=== PATIENT | female | born 1980 | race Caucasian/White ===

== ENCOUNTER 2017-04-09 08:36 | Emergency (ER) | payer SELFPAY ==
[~2017-04-09] VITALS: Ht 154.9 cm; Wt 57.0 kg
[~2017-04-09 08:36] MED LIST: BEN25 PO; CEPH-443 PO; CIPR500T4 PO; FERR325C PO; NAPR-260 PO
[2017-04-09 08:39] VITALS: Ht 154.9 cm; Wt 57.0 kg
[2017-04-09] MEDS ORDERED: LORAZEPAM 2 MG INJ IM STA (09:18)
[2017-04-09] MEDS ORDERED: SOD CHLORIDE 0.9% 1,000 ML IV STA (09:18)
[2017-04-09 09:41] LABS: ADD SCAN DIFF NO
[2017-04-09 09:43] LABS: ABNORMAL IP MESSAGE 1; BASOPHIL # 0.1 10^3/ul (0.0-0.1); BASOPHILS % 0.6 % (0.0-2.0); EOSINOPHILS % 0.1 % (0.0-7.0); HEMATOCRIT 36.5 % (37.0-47.0); HEMOGLOBIN 12.9 g/dl (12.0-16.0); LYMPHOCYTES # 3.4 10^3/ul (0.8-2.9); LYMPHOCYTES % 22.1 % (15.0-51.0); MEAN CORPUSCULAR HEMOGLOBIN 31.1 pg (29.0-33.0); MEAN CORPUSCULAR HGB CONC 35.3 g/dl (32.0-37.0); MEAN PLATELET VOLUME 10.3 fl (7.4-10.4); MONOCYTE # 2.1 10^3/ul (0.3-0.9); MONOCYTES % 13.5 % (0.0-11.0); NEUTROPHIL # 9.8 10^3/ul (1.6-7.5); NEUTROPHILS % 63.4 % (39.0-77.0); PLATELET COUNT 212 10^3/UL (140-415); RED BLOOD COUNT 4.15 10^6/ul (4.20-5.40); RED CELL DISTRIBUTION WIDTH 12.7 % (11.5-14.5); WHITE BLOOD COUNT 15.4 10^3/ul (4.8-10.8)
[2017-04-09 10:04] LABS: INR 1.08; PT RATIO 1.1
[2017-04-09 10:21] LABS: ALANINE AMINOTRANSFERASE 79 IU/L (13-69); ALBUMIN 4.4 g/dl (3.3-4.9); ALBUMIN/GLOBULIN RATIO 1.62; ALKALINE PHOSPHATASE 42 IU/L (42-121); ANION GAP 13 (8-16); ASPARTATE AMINO TRANSFERASE 117 IU/L (15-46); BILIRUBIN,INDIRECT 0.4 mg/dl (0-1.1); BILIRUBIN,TOTAL 0.4 mg/dl (0.2-1.3); BLOOD UREA NITROGEN 25 mg/dl (7-20); CALCIUM 10.1 mg/dl (8.4-10.2); CARBON DIOXIDE 26 mmol/L (21-31); CHLORIDE 97 mmol/L (97-110); GLUCOSE 105 mg/dl (70-220); POTASSIUM 3.3 mmol/L (3.5-5.1); SODIUM 133 mmol/L (135-144); TOTAL PROTEIN 7.1 g/dl (6.1-8.1)
[2017-04-09 10:24] LABS: ACETAMINOPHEN < 10.0 ug/ml (10.0-30.0); ETHANOL < 10.0 mg/dl; SALICYLATE < 1.0 mg/dl (5.0-30.0)
[2017-04-09] MEDS ORDERED: SOD CHLORIDE 0.9% 1,000 ML IV ONE (12:00)
[2017-04-09 12:47] LABS: ADD UMIC NO; UR ASCORBIC ACID NEGATIVE (NEGATIVE); UR BILIRUBIN (Dip) NEGATIVE (NEGATIVE); UR BLOOD (Dip) NEGATIVE (NEGATIVE); UR CLARITY CLEAR (CLEAR); UR COLOR YELLOW (YELLOW); UR GLUCOSE (Dip) NEGATIVE (NEGATIVE); UR KETONES (Dip) TRACE mg/dL (NEGATIVE); UR LEUKOCYTE ESTERASE (Dip) NEGATIVE Leu/ul (NEGATIVE); UR NITRITE (Dip) NEGATIVE (NEGATIVE); UR SPECIFIC GRAVITY (Dip) 1.009 (1.003-1.030); UR TOTAL PROTEIN (Dip) NEGATIVE (NEGATIVE); UR UROBILINOGEN (Dip) 1+ mg/dL (NEGATIVE)
--- NOTE | 2017-04-09 12:54 | ERA ---
ER Documentation Chief Complaint Date/Time DATE: 04/09/17 TIME: 12:52 Chief Complaint foot pain, bizarre behavior HPI Patient is a 37-year-old female who comes to the ER complaining of bilateral foot pain. Further history could not be obtained due to the patient's mental status and behavior. ROS All systems reviewed and are negative except as per history of present illness. Medications Home Meds Discontinued Scripts Cephalexin* (Keflex*) 500 Mg Capsule, 500 MG PO QID for 10 Days, CAP Prov:PEARL GOINS NP 04/28/16 Diphenhydramine Hcl* (Benadryl*) 25 Mg Cap, 25 MG PO Q6 Y for ITCHING/RASH, #30 TAB Prov:PEARL GOINS NP 04/28/16 Ciprofloxacin Hcl* (Ciprofloxacin Hcl*) 500 Mg Tablet, 500 MG PO BID for 7 Days , TAB Prov:SÁNCHEZ RUSH PA-C 04/23/16 Naproxen* (Naprosyn*) 500 Mg Tablet, 500 MG PO BID Y for PAIN AND/OR INFLAMMATION, #30 TAB Prov:SÁNCHEZ RUSH PA-C 04/23/16 Ferrous Sulfate (Iron) 325 Mg Capsr, 325 MG PO TID for 15 Days Prov:YEYO MARRERO NP 12/02/15 Allergies Allergies: Coded Allergies: ciprofloxacin (Verified Allergy, Unknown, rash, 04/09/17) PMhx/Soc Past medical history: Unobtainable Past surgical history: Unobtainable Social history: Patient denies drug or alcohol abuse. Prior notes show history of methamphetamine abuse History of Surgery: Yes (cholecystectomy) Anesthesia Reaction: No Hx Neurological Disorder: Yes (degenerative joint disease) Hx Respiratory Disorders: No Hx Cardiac Disorders: No Hx Psychiatric Problems: Yes (anxiety, depression, mood disorder) Hx Miscellaneous Medical Probl: No Hx Alcohol Use: No (unable to assess) Hx Substance Use: No (unable to assess) Hx Tobacco Use: Yes Smoking Status: Current every day smoker FmHx Unable to obtain Physical Exam Vitals Vital Signs Date Time Temp Pulse Resp B/P Pulse Ox O2 Delivery O2 Flow Rate FiO2 04/09/17 12:00 105 18 114/78 100 Room Air 04/09/17 08:39 97.8 96 18 136/90 99 Physical Exam Const: Alert, severely agitated, pressured speech and screaming Head: Atraumatic Eyes: Normal Conjunctiva, no pallor, no icterus. Pupils equal round reactive , mydriasis ENT: Normal External Ears, Nose and Mouth. Moist mucous membranes Neck: Full range of motion..~ No meningismus. Resp: Clear to auscultation bilaterally, no wheezes, no rales Cardio: Mild tachycardia, regular rhythm, no murmurs Abd: Soft, non tender, non distended. Skin: No petechiae or rashes Back: No midline or flank tenderness Ext: No cyanosis, or edema Neur: Awake and alert, moving 4 extremities Psych: Rapid pressured speech, tangential thought pattern, agitated, uncooperative, responding to internal stimuli Result Diagram: 04/09/1737 04/09/17 0937 Results 24 hrs Laboratory Tests Test 04/09/17 09:37 04/09/17 12:00 White Blood Count 15.410^3/ul Red Blood Count 4.1510^6/ul Hemoglobin 12.9g/dl Hematocrit 36.5% Mean Corpuscular Volume 88.0fl Mean Corpuscular Hemoglobin 31.1pg Mean Corpuscular Hemoglobin Concent 35.3g/dl Red Cell Distribution Width 12.7% Platelet Count 61066^3/UL Mean Platelet Volume 10.3fl Neutrophils % 63.4% Lymphocytes % 22.1% Monocytes % 13.5% Eosinophils % 0.1% Basophils % 0.6% Nucleated Red Blood Cells % 0.0/100WBC Neutrophils # 9.810^3/ul Lymphocytes # 3.410^3/ul Monocytes # 2.110^3/ul Eosinophils # 0.010^3/ul Basophils # 0.110^3/ul Nucleated Red Blood Cells # 0.010^3/ul Prothrombin Time 14.0Sec Prothrombin Time Ratio 1.1 INR International Normalized Ratio 1.08 Sodium Level 133mmol/L Potassium Level 3.3mmol/L Chloride Level 97mmol/L Carbon Dioxide Level 26mmol/L Anion Gap 13 Blood Urea Nitrogen 25mg/dl Creatinine 1.00mg/dl Glucose Level 105mg/dl Calcium Level 10.1mg/dl Total Bilirubin 0.4mg/dl Direct Bilirubin 0.00mg/dl Indirect Bilirubin 0.4mg/dl Aspartate Amino Transf (AST/SGOT) 117IU/L Alanine Aminotransferase (ALT/SGPT) 79IU/L Alkaline Phosphatase 42IU/L Creatine Kinase 1259IU/L Total Protein 7.1g/dl Albumin 4.4g/dl Globulin 2.70g/dl Albumin/Globulin Ratio 1.62 Salicylates Level < 1.0mg/dl Acetaminophen Level < 10.0ug/ml Ethyl Alcohol Level < 10.0mg/dl Urine Color YELLOW Urine Clarity CLEAR Urine pH 6.0 Urine Specific [place] 1.009 Urine Ketones TRACEmg/dL Urine Nitrite NEGATIVEmg/dL Urine Bilirubin NEGATIVEmg/dL Urine Urobilinogen 1+mg/dL Urine Leukocyte Esterase NEGATIVELeu/ul Urine Hemoglobin NEGATIVEmg/dL Urine Glucose NEGATIVEmg/dL Urine Total Protein NEGATIVEmg/dl Urine Opiates Screen Negative Urine Barbiturates Negative Urine Amphetamines Screen Positive Urine Benzodiazepines Screen Negative Urine Cocaine Screen Negative Urine Cannabinoids Negative Current Medications Medications (Trade) Dose Ordered Sig/Ambar Route PRN Reason Start Time Stop Time Status Last Admin Dose Admin Sodium Chloride (NS) 1,000 ml @ 1,000 mls/hr Q1H STAT IV 04/09/17 09:18 04/09/17 10:17 DC 04/09/17 10:06 Lorazepam 4 mg 4 mg ONCE STAT IM 04/09/17 09:18 04/09/17 09:21 DC 04/09/17 09:34 Sodium Chloride (NS) 1,000 ml @ 1,000 mls/hr Q1H ONCE IV 04/09/17 12:00 04/09/17 12:59 DC 04/09/17 11:49 Potassium Chloride (Klor-Con 20) 20 meq ONCE STAT PO 04/09/17 13:40 04/09/17 13:43 DC 04/09/17 14:48 Procedures/MDM MDM: Patient is a 37-year-old female who presents to the ER with signs of psychosis. She has had prior ER presentations with similar symptoms in the setting of methamphetamine abuse. Her tox screen is positive for amphetamines. She has a CK of 1250. IV fluids and Ativan were given. Patient has mild hypokalemia. Tele-psychiatry was consulted, and recommends placing the patient on a 5150 hold. PET team is been called to place hold. A repeat CK was ordered and will be reviewed by Dr. Yost prior to medical clearance. I have ordered p.o. potassium repletion for when the patient is more alert and cooperative. There are no signs of trauma or infection on exam. The patient's primary complaint of foot pain is likely due to walking barefoot, as she appears to have some blisters to her feet. There are no signs of infection or injury. Departure Diagnosis: Primary Impression: Acute psychosis Additional Impressions: Methamphetamine abuse Hypokalemia Foot pain Qualified Code: M79.671 - Pain in both feet Condition: HAYDEN Hyman MD Apr 09, 2017 12:54
--- NOTE | 2017-04-09 13:06 | PSY ---
Date/Time of Note Date/Time of Note DATE: 04/09/17 TIME: 16:01 Psychiatric Subjective Eval Subjective Evaluation Patient location: emergency Chief Complaint: foot pain, bizarre behavior Reason for consult: rambling, inappropriate behavior History of present illness HPI: The patient is a 37 yo female with a ho methamphetamine abuse. Pt came to ED complaining of foot pain. Was extremely psychotic agitated, disorganized. This MD was actually seeing another pt in the ED and witnessed pt's behavior which was so disruptive it was almost impossible to interview patient's in the ER. Extremely agitated and belligerent. Screaming in loudest voice possible, nonsense, without hesitation. Required numerous staff members to subdue, required 4mg IM ativan. pt denied drug use but was resistant to utox. MD came to see pt. when MD first started speaking pt opened eyes. When MD introduced himself as the psychiatrist she closed eyes and would not respond to MD in any way. Past Psych Hx: unclear, past ho methamphetamine abuse -PMHx, MEds, allergies:: unknown due to current mental state MSE: in bed , as in hpi is awake and responded to MD while he began speaking then closed eyes and refused to even acknowledge MD after MD introduced himself -for moderate agitation zyprexa 5mg po -for severe agitation haldol 5mg IM, ativan 2mg IM< cogentin 1mg im -pt would require 5150 given her agitationwas so severe as to preclude caring for self in community Medical history Problems Medical Problems: (1) Altered level of consciousness Status: Acute (2) Anemia Status: Acute (3) Psychosis Status: Acute (4) Rash Status: Acute (5) UTI (urinary tract infection) Status: Acute (6) Vaginal bleeding in patient at less than 20 weeks gestation Status: Acute Allergies: Coded Allergies: ciprofloxacin (Verified Allergy, Unknown, rash, 04/09/17) Psychiatric Objective Eval Mental Status Examination: Laboratory Results Laboratory Tests Test 04/09/17 09:37 04/09/17 12:00 White Blood Count 15.410^3/ul Red Blood Count 4.1510^6/ul Hemoglobin 12.9g/dl Hematocrit 36.5% Mean Corpuscular Volume 88.0fl Mean Corpuscular Hemoglobin 31.1pg Mean Corpuscular Hemoglobin Concent 35.3g/dl Red Cell Distribution Width 12.7% Platelet Count 71467^3/UL Mean Platelet Volume 10.3fl Neutrophils % 63.4% Lymphocytes % 22.1% Monocytes % 13.5% Eosinophils % 0.1% Basophils % 0.6% Nucleated Red Blood Cells % 0.0/100WBC Neutrophils # 9.810^3/ul Lymphocytes # 3.410^3/ul Monocytes # 2.110^3/ul Eosinophils # 0.010^3/ul Basophils # 0.110^3/ul Nucleated Red Blood Cells # 0.010^3/ul Prothrombin Time 14.0Sec Prothrombin Time Ratio 1.1 INR International Normalized Ratio 1.08 Sodium Level 133mmol/L Potassium Level 3.3mmol/L Chloride Level 97mmol/L Carbon Dioxide Level 26mmol/L Anion Gap 13 Blood Urea Nitrogen 25mg/dl Creatinine 1.00mg/dl Glucose Level 105mg/dl Calcium Level 10.1mg/dl Total Bilirubin 0.4mg/dl Direct Bilirubin 0.00mg/dl Indirect Bilirubin 0.4mg/dl Aspartate Amino Transf (AST/SGOT) 117IU/L Alanine Aminotransferase (ALT/SGPT) 79IU/L Alkaline Phosphatase 42IU/L Creatine Kinase 1259IU/L Total Protein 7.1g/dl Albumin 4.4g/dl Globulin 2.70g/dl Albumin/Globulin Ratio 1.62 Salicylates Level < 1.0mg/dl Acetaminophen Level < 10.0ug/ml Ethyl Alcohol Level < 10.0mg/dl Urine Color YELLOW Urine Clarity CLEAR Urine pH 6.0 Urine Specific [place] 1.009 Urine Ketones TRACEmg/dL Urine Nitrite NEGATIVEmg/dL Urine Bilirubin NEGATIVEmg/dL Urine Urobilinogen 1+mg/dL Urine Leukocyte Esterase NEGATIVELeu/ul Urine Hemoglobin NEGATIVEmg/dL Urine Glucose NEGATIVEmg/dL Urine Total Protein NEGATIVEmg/dl MARIE GOINS Apr 09, 2017 13:06
[2017-04-09 13:28] LABS: BARBITURATES Negative (NEGATIVE); BENZODIAZEPINES Negative (NEGATIVE); CANNABINOIDS Negative (NEGATIVE); COCAINE Negative (NEGATIVE); OPIATES Negative (NEGATIVE)
[2017-04-09] MEDS ORDERED: POTASSIUM CHLORIDE (SR) 20 MEQ TAB PO STA (13:40)
--- NOTE | 2017-04-10 12:41 | EN ---
Date/Time of Note Date/Time of Note DATE: 04/10/17 TIME: 12:40 ER Progress Note The patient was evaluated by PMRT and did not meet criteria for a hold. The patient was reevaluated by Dr. Dietz. The patient is no longer meeting criteria for 5150 hold and her agitation is likely secondary to methamphetamine. The patient can be safely discharged from the emergency room. GLORIA LEUNG MD Apr 10, 2017 12:41
--- NOTE | 2017-04-10 12:58 | PSY ---
Date/Time of Note Date/Time of Note DATE: 04/10/17 TIME: 12:54 Psychiatric Subjective Eval Consent Pt consented to telemedicine: Yes Subjective Evaluation Patient location: emergency Chief Complaint: foot pain, bizarre behavior Reason for consult: rambling, inappropriate behavior History of present illness d/w Dr Frank. 37 YO HOMELESS female who presented to ED c/o foot pain and was restrained due to severe agitation - pt was positive for amphetamine. Pt is calm and cooperative now, she denies depressed mood, denies anxiety, she states she got information about placement and is looking forward to going into a sober living. She denies si or hi, denies ah or vh, denies paranoia. She requests to be discharged. Past psychiatric history pt said she has a hx inpt due to being agitated while high on met Hospitalization: yes Family History denies Medical history Problems Medical Problems: (1) Altered level of consciousness Status: Acute (2) Anemia Status: Acute (3) Methamphetamine abuse Status: Acute (4) Methamphetamine use Status: Acute (5) Psychosis Status: Acute (6) Rash Status: Acute (7) UTI (urinary tract infection) Status: Acute (8) Vaginal bleeding in patient at less than 20 weeks gestation Status: Acute Allergies: Coded Allergies: ciprofloxacin (Verified Allergy, Unknown, rash, 04/09/17) Substance Abuse Substance abuse history: Yes Prior substance abuse treatmen: Yes Social History Marital status: single Level of education: hs DPA/Conservatorship: No Occupation/Senior Care: on food stamps Psychiatric Objective Eval Review of Systems: Review of Systems: Not Applicable Physical Examination: Physical Examination: Not Applicable Mental Status Examination: Appearance: Disheveled Eye Contact: Good Psychomotor Activity: Normal Behavior: Cooperative Speech: Clear AFFECT: Appropriate Mood: Appropriate/Full Though Process: Linear Thought Content: Normal Suicidal: No Homicidal: No On 72 hour hold: No Orientation: x4 Cognition: Alert Insight: Impared Judgement: Impared Laboratory Results Laboratory Tests Test 04/09/17 09:37 04/09/17 12:00 04/09/17 14:30 White Blood Count 15.410^3/ul Red Blood Count 4.1510^6/ul Hemoglobin 12.9g/dl Hematocrit 36.5% Mean Corpuscular Volume 88.0fl Mean Corpuscular Hemoglobin 31.1pg Mean Corpuscular Hemoglobin Concent 35.3g/dl Red Cell Distribution Width 12.7% Platelet Count 75520^3/UL Mean Platelet Volume 10.3fl Neutrophils % 63.4% Lymphocytes % 22.1% Monocytes % 13.5% Eosinophils % 0.1% Basophils % 0.6% Nucleated Red Blood Cells % 0.0/100WBC Neutrophils # 9.810^3/ul Lymphocytes # 3.410^3/ul Monocytes # 2.110^3/ul Eosinophils # 0.010^3/ul Basophils # 0.110^3/ul Nucleated Red Blood Cells # 0.010^3/ul Prothrombin Time 14.0Sec Prothrombin Time Ratio 1.1 INR International Normalized Ratio 1.08 Sodium Level 133mmol/L Potassium Level 3.3mmol/L Chloride Level 97mmol/L Carbon Dioxide Level 26mmol/L Anion Gap 13 Blood Urea Nitrogen 25mg/dl Creatinine 1.00mg/dl Glucose Level 105mg/dl Calcium Level 10.1mg/dl Total Bilirubin 0.4mg/dl Direct Bilirubin 0.00mg/dl Indirect Bilirubin 0.4mg/dl Aspartate Amino Transf (AST/SGOT) 117IU/L Alanine Aminotransferase (ALT/SGPT) 79IU/L Alkaline Phosphatase 42IU/L Creatine Kinase 1259IU/L 840IU/L Total Protein 7.1g/dl Albumin 4.4g/dl Globulin 2.70g/dl Albumin/Globulin Ratio 1.62 Salicylates Level < 1.0mg/dl Acetaminophen Level < 10.0ug/ml Ethyl Alcohol Level < 10.0mg/dl Urine Color YELLOW Urine Clarity CLEAR Urine pH 6.0 Urine Specific [place] 1.009 Urine Ketones TRACEmg/dL Urine Nitrite NEGATIVEmg/dL Urine Bilirubin NEGATIVEmg/dL Urine Urobilinogen 1+mg/dL Urine Leukocyte Esterase NEGATIVELeu/ul Urine Hemoglobin NEGATIVEmg/dL Urine Glucose NEGATIVEmg/dL Urine Total Protein NEGATIVEmg/dl Urine Opiates Screen Negative Urine Barbiturates Negative Urine Amphetamines Screen Positive Urine Benzodiazepines Screen Negative Urine Cocaine Screen Negative Urine Cannabinoids Negative Assessment and Plan Assessment/Diagnosis [place] I: amphetamine intoxication, resolved; amphetamine use disorder [place] II: defered [place] III: nad [place] IV: severe [place] V: gaf 45 Recommendation/Plan Medication Management defer to outpt Psychotherapy 12 step program Follow-up/Disposition pt can be discharged - no dts, dto,gd. 5150 Recommendation: Release Hold JASVIR SILVEIRA MD Apr 10, 2017 12:58
[2017-04-10 13:14] VITALS: BP 129/71; PULSE 77; RESP 18; TEMP 98.5
== END 2017-04-10 13:19 | disposition home or self-care (01) ==
LOC: E/R 08:36
DX: F23 Brief psychotic disorder (principal); F15.10 Other stimulant abuse, uncomplicated; E87.6 Hypokalemia; M79.671 Pain in right foot; F17.210 Nicotine dependence, cigarettes, uncomplicated
CPT/HCPCS: 36415; 51702; 80053; 80306; 80307; 81003; 82550; 85025; 85610; 96372; 99284; A4310; J2060; J7030